=== PATIENT | female | born 1945 | race Two or more races ===

== ENCOUNTER 2021-05-08 09:30 | Emergency (ER) | payer OTHER ==
[~2021-05-08] VITALS: Ht 152.4 cm; Wt 58.1 kg
[2021-05-08] MEDS ORDERED: AVALIDE 300-121 EACH PO (09:44)
[2021-05-08] MEDS ORDERED: PLAVIX75 MG PO (09:44)
== END 2021-05-08 14:42 | disposition home or self-care (01) ==
LOC: ER 09:30
DX: R10.84 Generalized abdominal pain (principal); M54.50 Low back pain, unspecified; I10 Essential (primary) hypertension; Z88.6 Allergy status to analgesic agent; Z88.0 Allergy status to penicillin; Z88.2 Allergy status to sulfonamides